=== PATIENT | male | born 1995 | race Hispanic/Latino ===

== ENCOUNTER 2019-10-28 01:04 | Emergency (ER) | payer SELFPAY ==
[2019-10-28] MEDS ORDERED: FAMOTIDINE 20MG TAB 20 MG TAB ONE (23:15)
[2019-10-28] MEDS ORDERED: ENOXAPARIN SODIUM 30 MG/0.3 ML SQ ONE (23:15)
== END 2019-10-28 01:47 | disposition left against medical advice (07) ==
LOC: EDH 01:04
DX: R10.9 Unspecified abdominal pain (principal); Z53.21 Procedure and treatment not carried out due to patient leaving prior to being seen by health care provider
CPT/HCPCS: J1650

== ENCOUNTER 2025-04-30 05:31 | Emergency (ER) | payer OTHER, SELFPAY ==
[~2025-04-30] VITALS: Ht 167.6 cm; Wt 84.4 kg
--- NOTE | 2025-04-30 06:24 | ERN ---
General Chief Complaint: Numbness Stated Complaint: DIZZINESS AND NUMBNESS Time Seen by MD: 06:15 Source: patient History of Present Illness Initial Comments Patient is a 29-year-old male coming in for numbness along his left mastoid process left trapezius muscle and also a feeling of chest tightness. Accompanying this feeling of numbness and chest tightness the patient is starts to become tachypneic and anxious and tachycardic. The patient can feel me palpating his left trapezius muscle. He can also feel me touching it with my pen. He had a recent symptoms like this approximately a week ago in [facility]; however, the symptoms were more pronounced with the numbness also including his forehead and his bilateral arms. The patient was admitted to a hospital in [facility] and a CT scan was performed followed by an MRI which showed no evidence of a stroke. The patient states they did not do a carotid Doppler or an echocardiogram at the [facility]. He was discharged from the hospital on blood thinners and anti hypercholesterolemia medication. The numbness does not quite explain the situation as patient could feel things touching his arms hands and head throughout his exam is while he was in [facility]. Allergies: Coded Allergies: No Known Drug Allergies (Unverified Allergy, Unknown, 10/28/19) Past Medical History Past Medical History: Stroke Past Surgical History: None Constitutional: (-) chills, (-) diaphoresis, (-) fever, (-) malaise, (-) weakness, (-) other documentation EENTM: (-) eye pain, (-) blurred vision, (-) tearing, (-) double vision, (-) ear pain, (-) ear discharge, (-) nose pain, (-) nose congestion, (-) throat pain, (-) Throat swelling, (-) mouth pain, (-) tooth pain, (-) mouth swelling, (-) other documentation Respiratory: (-) cough, (-) orthopnea, (-) short of breath, (-) stridor, (-) wheezing, (-) other documentation Cardiovascular: (+) other documentation (Chest tightness) Gastrointestinal/Abdominal: (-) nausea, (-) vomiting, (-) diarrhea, (-) abdominal pain, (-) abdominal distention, (-) constipation, (-) rectal bleeding, (-) dark stool/melena, (-) other documentation Musculoskeletal: (+) Neck pain Skin: (-) laceration, (-) contusion, (-) abrasion, (-) abscess, (-) rash, (-) change in color, (-) change in hair, (-) change in nails, (-) diaphoresis, (-) dryness, (-) other documentation Neuro: (+) numbness Physical Exam General Appearance: (+) mild distress Orientation: (+) alert, (+) oriented x 3 Head/Face Trauma: No Eye: bilateral eye normal inspection, bilateral eye PERRL, bilateral eye EOMI Ear, Nose, Throat: (+) hearing grossly normal, (+) normal ENT inspection Neck: (+) normal inspection, (+) supple Respiratory: (+) chest non-tender, (+) lungs clear, (+) well ventilated Heart: (+) regular, (+) no gallop Vascular: (+) no edema, (+) normal peripheral pulse Gastrointestinal: (+) soft, (+) non-tender, (+) bowel sound present Results Laboratory and Microbiology Lab and Micro Result Laboratory Tests Test 04/30/25 06:43 04/30/25 06:50 Urine Color LIGHT-YELLOW (YELLOW) Urine Appearance CLEAR (CLEAR) Urine pH 6.0 (5.0-8.0) Urine Specific [place] 1.019 (1.001-1.031) Urine Protein NEGATIVE mg/dL (NEGATIVE) Urine Glucose (UA) NEGATIVE mg/dL (NEGATIVE) Urine Ketones NEGATIVE mg/dL (NEGATIVE) Urine Occult Blood NEGATIVE (NEGATIVE) Urine Nitrate NEGATIVE (NEGATIVE) Urine Bilirubin NEGATIVE mg/dL (NEGATIVE) Urine Urobilinogen 0.2 mg/dL (0.2-1.0) Urine Leukocyte Esterase NEGATIVE Laila/uL White Blood Count 6.2 K/uL (4.8-10.8) Red Blood Count 5.25 MIL/uL (4.50-6.20) Hemoglobin 15.7 g/dL (14.0-18.0) Hematocrit 45.3 % (42-54) Mean Corpuscular Volume 86.3 fL (79-99) Mean Corpuscular Hemoglobin 29.9 pg (27.0-33.0) Mean Corpuscular Hemoglobin Concent 34.7 g/dL (32.0-36.0) Red Cell Distribution Width 12.8 % (11.0-15.5) Platelet Count 238 K/uL (130-400) Mean Platelet Volume 9.8 fL (7.5-10.5) Immature Granulocyte % (Auto) 0.2 % (0-1) Neutrophils (%) (Auto) 57.9 % (40.0-77.0) Lymphocytes (%) (Auto) 29.8 % (21.0-51.0) Monocytes (%) (Auto) 8.1 % (3.0-13.0) Eosinophils (%) (Auto) 3.4 % (0.0-8.0) Basophils (%) (Auto) 0.6 % (0.0-5.0) Neutrophils # (Auto) 3.6 K/uL (1.8-7.7) Lymphocytes # (Auto) 1.8 K/uL (1.0-4.8) Monocytes # (Auto) 0.5 K/uL (0.1-1.0) Eosinophils # (Auto) 0.21 K/uL (0.00-0.70) Basophils # (Auto) 0.04 K/uL (0.00-0.20) Absolute Immature Granulocyte (auto 0.01 K/uL (0-1) Nucleated Red Blood Cells 0.0 % (0.0-0.19) Sodium Level 142 mmol/L (136-145) Potassium Level 4.0 mmol/L (3.5-5.1) Chloride Level 105 mmol/L (101-111) Carbon Dioxide Level 28 mmol/L (21-32) Blood Urea Nitrogen 16 mg/dL (7-18) Creatinine 0.7 mg/dL (0.5-1.3) Glomerular Filtration Rate Calc 127 mL/min (>90) Random Glucose 98 mg/dL (70-105) Total Calcium 9.2 mg/dL (8.5-10.1) Troponin I High Sensitivity 6 ng/L (4-75) Labs Reviewed?: Yes EKG/XRAY/US/CT/MRI EKG Comment 2024 time 6:51 a.m. Ventricular rate 68 Sinus rhythm [place] [address] wave elevation or depression X-RAY Comment [place] [id number] [address] IMAGING REPORT Signed PATIENT: JABARI ALDANA MR#: [id number] : 1995 SEX: M AGE: 29 LOCATION: [facility] ORDER 5 STATUS: REG ER REPORT#: [id number] SERVICE 3 REASON: sob ORDERING PHYSICIAN: MONTY VIEYRA MD PROCEDURE: CXR1VW - CHEST 1VW EXAM: CR Chest, 1 View. CLINICAL HISTORY: sob COMPARISON: None provided. FINDINGS: LUNGS: There is no mass, infiltrate, or acute pulmonary abnormality. PLEURAL SPACES: No pleural effusion or pneumothorax. MEDIASTINUM: Cardiac size and mediastinal contours within normal limits. BONES: No aggressive appearing osseous lesion seen. IMPRESSION: No acute cardiopulmonary pathology is evident. /[employer] DICTATED BY: MAURO DAVALOS MD DATE: 04/30/25950 ELECTRONICALLY SIGNED BY: MAURO DAVALOS MD DATE: 04/30/25950 CT Scan Comment IMAGING REPORT Signed PATIENT: JABARI ALDANA MR#: [id number] : 1995 SEX: M AGE: 29 LOCATION: [facility] ORDER 7 STATUS: [facility] ER REPORT#: [id number] SERVICE 4 REASON: numbness in neck and arms ORDERING PHYSICIAN: ROXANNA ELIZONDO MD PROCEDURE: HEAD WO - CT HEAD/BRAIN W/O CONTRAST EXAM: CT Head Without IV contrast. CLINICAL HISTORY: numbness in neck and arms TECHNIQUE: Axial computed tomography images of the head/brain without intravenous contrast. COMPARISON: None provided. FINDINGS: BRAIN: No evidence of acute hemorrhage. No mass lesion. No CT evidence for acute territorial infarct. No midline shift or extra-axial collections. VENTRICLES: No hydrocephalus. ORBITS: The orbits are unremarkable. SINUSES AND MASTOIDS: The paranasal sinuses and mastoid air cells are clear. BONES: No fracture. SOFT TISSUES: Unremarkable. IMPRESSION: No acute intracranial abnormality. /[employer] DICTATED BY: MAURO DAVALOS MD DATE: 04/30/25751 ELECTRONICALLY SIGNED BY: MAURO DAVALOS MD DATE: 04/30/25751 [facility] MDM: Differential diagnosis: Patient is here for symptoms of numbness and chest tightness that seemed to then escalate to anxiety tachycardia and feelings of shortness of breath. The patient is is having very atypical stroke symptoms. And to be put on a blood thinner with a negative stroke workup in the patient as young as he is seems premature without evidence of plaque in his carotids or evidence of heart disease. For now I will bolused the patient with fluids and do lab tests to sort out other possible reasons for his feelings of numbness and lightheadedness. Rationale: Tests considered and ordered secondary to shared decision making include: Previous outside records reviewed: Old ER visits. Risk of complication and/or morbidity or mortality of patient management: None Medications-Per medication reconciliation Need for hospitalization: Patient does not meet criteria for hospitalization. Need for emergency major/minor surgery: No There are no social concerns with this patient. Prescription drug management Prescriptions will include symptomatic care Patient's prior external medical records from other ER visits were reviewed by me as indicated. Prior testing and results from previous visits were reviewed. Prior tests were taken into account with medical decision making and resource utilization, independent historian/historians were used to obtain complete medical history. I independently interpreted the test that were performed, results were reviewed by me and considered findings on radiology if ordered. Patient is a 29-year-old male coming in with multiple complaints. Per patient he has been having some shortness of breath isn't present at the moment but goes and comes. Long with the as he states that when he has a shortness of breath he feels very anxious in his numbness in his head and he was treated for a TIA at another ER. Throughout ER visit patient has been stable chest x-ray CT all are negative I did advised him appropriate follow up with PCP we will be treating face the discomfort he de scribed reflux. ED Course Orders Procedure Category Date Status Time 12 Lead Ekg Tracing- EKG 04/30/25 Complete Technical 06:25 Basic Metabolic Panel LAB 04/30/25 Complete 06:25 Cbc With Differential LAB 04/30/25 Complete 06:25 Urinalysis Profile LAB 04/30/25 Complete 06:25 Lactated Ringers PHA 04/30/25 Complete 1000ml (Lactated 06:25 Troponin I High LAB 04/30/25 Complete Sensitivity 06:25 Ct Head/Brain W/O CT 04/30/25 Resulted Contrast 06:25 Lidocaine Hcl 2% PHA 04/30/25 Complete Viscous (Lidocaine Hcl 08:00 Mag/Alum/Simeth 30ml PHA 04/30/25 Complete (Maalox Plus 30ml) 08:00 Chest 1vw RAD 04/30/25 Resulted 07:54 Current Medications Medications (Trade) Dose Ordered Sig/Stella Route PRN Reason Start Time Stop Time Status Last Admin Dose Admin Al Hydroxide/Mg Hydroxide (MAALox PLUS 30ML) 30 ml ONCE ONCE PO 04/30/25 08:00 04/30/25 08:01 DC 04/30/25 08:01 Lactated Ringer's (Lactated Ringers 1000ml) 1,000 ml BOLUS STAT IV 04/30/25 06:25 04/30/25 06:28 DC 04/30/25 06:56 Lidocaine HCl (Lidocaine HCl 2% Viscous) 10 ml ONCE ONCE PO 04/30/25 08:00 04/30/25 08:01 DC 04/30/25 08:01 Vital Signs Date Time Temp Pulse Resp B/P (MAP) Pulse Ox O2 Delivery O2 Flow Rate FiO2 04/30/25 07:03 58 14 113/65 98 Room Air* 0 21 04/30/25 05:56 98.1 75 14 113/55 98 Room Air* 0 21 04/30/25 05:34 98.1 73 19 133/70 100 Room Air 0 DX & DISP Disposition: Discharge Departure Impression: Primary Impression: GERD (gastroesophageal reflux disease) Additional Impression: Dehydration Condition: Stable Scripts Pantoprazole Sodium (Protonix) 40 Mg Ectab 1 TAB PO DAILY for 30 Days, #30 TAB 0 Refills Prov: MONTY VIEYRA MD 04/30/25 Additional Instructions: You have been reviewed in the emergency department at [facility] after presenting with chest pain. After considering your history, your risk factors, your EKG and your blood test troponins, have been found to be at very low risk less than (1 in 100) of having a major adverse cardiac event (like heart attack) in the near future. In the " low risk" group, the risks of doing further tests and treatment as the inpatient outweighs the benefits. In many patients in the low risk group for the test of any sort or unnecessary, however he should discuss this further with his general practitioner who will understand the medical and personal backgrounds better. Because we have never declared you" no risk" we would suggest. 1 returning for medical review if you have further episodes of chest pain/arm pain or other concerning symptoms like dizziness, collapse, palpitations or shortness of breath. 2. Following up with your local doctor who will consider the need for further testing and will also ensure that any modifiable risk factors you may have for heart disease are optimally managed. Patient will be discharged in stable condition at the moment discharge patient states , no chest pain Referrals: KERI SNEED MD (PCP) CHELITA DUNAWAY MD Time of Disposition: 09:17 ROXANNA ELIZONDO MD Apr 30, 2025 06:24 MONTY VIEYRA MD Apr 30, 2025 07:54
--- NOTE | 2025-04-30 06:37 | NUR ---
PT LEFT TO CT AT THIS TIME
--- NOTE | 2025-04-30 06:53 | HMCIMG ---
EXAM: CT Head Without IV contrast. CLINICAL HISTORY: numbness in neck and arms TECHNIQUE: Axial computed tomography images of the head/brain without intravenous contrast. COMPARISON: None provided. FINDINGS: BRAIN: No evidence of acute hemorrhage. No mass lesion. No CT evidence for acute territorial infarct. No midline shift or extra-axial collections. VENTRICLES: No hydrocephalus. ORBITS: The orbits are unremarkable. SINUSES AND MASTOIDS: The paranasal sinuses and mastoid air cells are clear. BONES: No fracture. SOFT TISSUES: Unremarkable. IMPRESSION: No acute intracranial abnormality. /[place]
--- NOTE | 2025-04-30 06:55 | EKG ---
[facility] Test Date: 2025-04-30 Test Time: 06:51:09 Pat Name: JABARI ALDANA Department: ED Room: Gender: M [employer] Director: [id number] : 1995 Requested By: ROXANNA ELIZONDO Order Number: [id number] Reading MD: You Box Measurements Intervals [place] Rate: 68 P: 19 CA: 156 QRS: 0 QRSD: 91 T: 21 QT: 371 QTc: 396 Interpretive Statements Sinus rhythm Indeterminate axis No previous ECG available for comparison Electronically Signed On 04-30-2025 10:34:06 CDT by You Box Please click the below link to view image of tracing.
[2025-04-30] MEDS: LACTATED RINGERS 1000ML IV STA (06:56)
[2025-04-30 06:58] LABS: IMMATURE GRANULOCYTE ABSOLUTE 0.01 K/uL (0-1); NUCLEATED RED BLOOD CELLS 0.0 % (0.0-0.19); PLATELET COUNT (AUTO) 238 K/uL (130-400); RED BLOOD CELL COUNT(AUTO) 5.25 MIL/uL (4.50-6.20); RED CELL DISTRIBUTION WIDTH 12.8 % (11.0-15.5); WHITE BLOOD COUNT (AUTO) 6.2 K/uL (4.8-10.8)
[2025-04-30 07:01] LABS: APPEARANCE,URINE CLEAR (CLEAR); GLUCOSE, URINE (UA) NEGATIVE (NEGATIVE); LEUKOCYTE ESTERASE ,URINE NEGATIVE Leu/uL (NEGATIVE); NITRATE,URINE NEGATIVE (NEGATIVE); OCCULT BLOOD,URINE NEGATIVE (NEGATIVE)
--- NOTE | 2025-04-30 07:04 | NUR ---
REPORT GIVEN TO SHAZIA GILLIAM AT THIS TIME
[2025-04-30 07:09] LABS: CREATININE 0.7 mg/dL (0.5-1.3); GLOMERULAR FILTR. RATE CALC 127.0 mL/min (>90); GLUCOSE,RANDOM 98.0 mg/dL (70-105); SODIUM SERUM 142.0 mmol/L (136-145); UREA NITROGEN, BLOOD 16.0 mg/dL (7-18)
[2025-04-30 07:11] LABS: ADD UA MICROSCOPIC NO
[2025-04-30] MEDS: MAG/ALUM/SIMETH 30 ML UDCUP PO ONE (08:01)
[2025-04-30] MEDS: LIDOCAINE HCL 2% VISCOUS 15 ML UDCUP PO ONE (08:01)
--- NOTE | 2025-04-30 08:52 | HMCIMG ---
EXAM: CR Chest, 1 View. CLINICAL HISTORY: sob COMPARISON: None provided. FINDINGS: LUNGS: There is no mass, infiltrate, or acute pulmonary abnormality. PLEURAL SPACES: No pleural effusion or pneumothorax. MEDIASTINUM: Cardiac size and mediastinal contours within normal limits. BONES: No aggressive appearing osseous lesion seen. IMPRESSION: No acute cardiopulmonary pathology is evident. /[place]
[2025-04-30] MEDS ORDERED: PANT40TA55 PO (09:18)
[2025-04-30 09:47] VITALS: BP 126/76; PULSE 82; RESP 18; TEMP 97.8; O2SAT 98
== END 2025-04-30 09:54 | disposition home or self-care (01) ==
LOC: EDH 05:31
DX: K21.9 Gastro-esophageal reflux disease without esophagitis (principal); E86.0 Dehydration; Z79.01 Long term (current) use of anticoagulants; Z86.73 Personal history of transient ischemic attack (TIA), and cerebral infarction without residual deficits
CPT/HCPCS: 99285; 96360; 70450; 71045; 84484; 80048; 85025; 81003; 36415; 93005; J7120

== ENCOUNTER 2025-05-03 00:03 | Emergency (ER) | payer OTHER ==
[~2025-05-03] VITALS: Ht 167.6 cm; Wt 83.5 kg
[~2025-05-03 00:03] MED LIST: PANT40TA55 PO
[2025-05-03 00:45] VITALS: TEMP 98.2
--- NOTE | 2025-05-03 01:02 | ERN ---
General Chief Complaint: Shortness of Breath Stated Complaint: C/O SOB X 2 DAYS Time Seen by MD: 00:06 Time Seen by Midlevel: 00:06 Source: patient, family History of Present Illness Initial Comments 29-year-old male who presents to the emergency department due to shortness of breath and chest pressure onset two days. Patient states he has been admitted twice due to stroke like symptoms and initiated on multiple medications. Patient was seen by PCP today and told there was an abnormality in the chest x- ray. States the chest pressure/pain is worsening. Denies any headache, abdominal pain, cough, congestion, fever, numbness or further associated symptoms. Allergies: Coded Allergies: No Known Drug Allergies (Unverified Allergy, Unknown, 10/28/19) Home Meds Active Scripts Hydroxyzine HCl (Hydroxyzine HCl) 25 Mg Tablet, 1 TAB PO TID for anxiety for 10 Days, #30 TAB 0 Refills Prov:KRYSTIAN ACUÑA MD 05/03/25 Pantoprazole Sodium (Protonix) 40 Mg Ectab, 1 TAB PO DAILY for 30 Days, #30 TAB 0 Refills Prov:MONTY VIEYRA MD 04/30/25 Reported Medications Atorvastatin Calcium (Atorvastatin Calcium) 40 Mg Tablet, 1 TAB PO DAILY for 30 Days, #30 TAB 0 Refills 05/03/25 Pantoprazole Sodium (Pantoprazole Sodium) 40 Mg Tablet.dr, 1 TAB PO DAILY for 30 Days, #30 TAB 0 Refills 05/03/25 Sertraline HCl (Sertraline HCl) 25 Mg Tablet, 1 TAB PO DAILY for 30 Days, #30 TAB 0 Refills 05/03/25 Loratadine (Loratadine) 10 Mg Tablet, 1 TAB PO DAILY for allergy symptoms for 30 Days, #30 TAB 0 Refills 05/03/25 Clopidogrel Bisulfate (Plavix) 75 Mg Tablet, 1 TAB PO DAILY for 30 Days, #30 TAB 0 Refills 05/03/25 Fluticasone Propionate (Fluticasone Propionate) 50 Mcg/Actuation [place].susp, 2 SPRAY NS DAILY, #16 GM 0 Refills 05/03/25 Past Medical History Past Medical History: No Pertinent History Past Surgical History: None ROS Dictation Constitutional: Negative for fever,chills, and weight loss Eyes: Negative for injury, pain,redness, and discharge ENT: Negative for injury,pain or swelling Cardiovascular: Positive for chest pain/pressure Negative for palpitations, and edema Respiratory: Positive for shortness of breath Negative for cough, and wheezing Abdomen/GI: Negative for abdominal pain, nausea, vomiting, diarrhea, and constipation Back: Negative for injury and pain : Negative for painful urination, bleeding or discharge MS/Extremity: Negative for injury and deformity Skin: Negative for rash, and discoloration Neuro: Negative for headache, weakness, numbness, tingling, and seizure Psych: Negative for suicide ideation, homicidal ideation, and hallucinations Physical Exam Physical Exam Dictation General: awake, alert, no acute distress Head/Face: Normocephalic, atraumatic Eyes: PERRL, EOMI, normal conjunctiva ENT: oral cavity clear, oral mucosa moist Neck: Supple, normal range of motion Cardiovascular: RRR, normal S1/S2 Respiratory: CTAB, no respiratory distress, no rales or wheezes Abdomen: Soft, non-tender, non-distended, normal bowel sounds, no guarding or rebound. Skin: Warm, dry, normal turgor, no rash MS/Extremity: Pulses equal, no cyanosis, neurovascular intact, FROM Neuro: COAx4, GCS 15, strength 5/5, CN 2-12 intact, normal cerebellar exam, normal gait, Psych: Normal behavior, mood, and affect normal Results Laboratory and Microbiology Lab and Micro Result Laboratory Tests Test 05/03/25 00:50 05/03/25 00:55 White Blood Count 9.0 K/uL (4.8-10.8) Red Blood Count 5.44 MIL/uL (4.50-6.20) Hemoglobin 16.4 g/dL (14.0-18.0) Hematocrit 46.1 % (42-54) Mean Corpuscular Volume 84.7 fL (79-99) Mean Corpuscular Hemoglobin 30.1 pg (27.0-33.0) Mean Corpuscular Hemoglobin Concent 35.6 g/dL (32.0-36.0) Red Cell Distribution Width 12.4 % (11.0-15.5) Platelet Count 261 K/uL (130-400) Mean Platelet Volume 10.6 fL (7.5-10.5) H Immature Granulocyte % (Auto) 0.2 % (0-1) Neutrophils (%) (Auto) 66.9 % (40.0-77.0) Lymphocytes (%) (Auto) 21.5 % (21.0-51.0) Monocytes (%) (Auto) 8.8 % (3.0-13.0) Eosinophils (%) (Auto) 2.0 % (0.0-8.0) Basophils (%) (Auto) 0.6 % (0.0-5.0) Neutrophils # (Auto) 6.0 K/uL (1.8-7.7) Lymphocytes # (Auto) 1.9 K/uL (1.0-4.8) Monocytes # (Auto) 0.8 K/uL (0.1-1.0) Eosinophils # (Auto) 0.18 K/uL (0.00-0.70) Basophils # (Auto) 0.05 K/uL (0.00-0.20) Absolute Immature Granulocyte (auto 0.02 K/uL (0-1) Nucleated Red Blood Cells 0.0 % (0.0-0.19) Sodium Level 142 mmol/L (136-145) Potassium Level 4.3 mmol/L (3.5-5.1) Chloride Level 103 mmol/L (101-111) Carbon Dioxide Level 29 mmol/L (21-32) Blood Urea Nitrogen 17 mg/dL (7-18) Creatinine 0.8 mg/dL (0.5-1.3) Glomerular Filtration Rate Calc 122 mL/min (>90) Random Glucose 95 mg/dL (70-105) Total Calcium 9.3 mg/dL (8.5-10.1) Troponin I High Sensitivity < 4 ng/L (4-75) L Urine Color COLORLESS (YELLOW) Urine Appearance CLEAR (CLEAR) Urine pH 6.0 (5.0-8.0) Urine Specific [place] 1.011 (1.001-1.031) Urine Protein NEGATIVE mg/dL (NEGATIVE) Urine Glucose (UA) NEGATIVE mg/dL (NEGATIVE) Urine Ketones NEGATIVE mg/dL (NEGATIVE) Urine Occult Blood NEGATIVE (NEGATIVE) Urine Nitrate NEGATIVE (NEGATIVE) Urine Bilirubin NEGATIVE mg/dL (NEGATIVE) Urine Urobilinogen 0.2 mg/dL (0.2-1.0) Urine Leukocyte Esterase NEGATIVE [place]/uL Urine RBC 0-1 /HPF (0-1) Urine WBC 0-1 /HPF (0-1) Urine Bacteria None /HPF (None Seen) Urine Opiates Screen NEGATIVE (NEGATIVE) Urine Barbiturates Screen NEGATIVE (NEGATIVE) Urine Phencyclidine Screen NEGATIVE (NEGATIVE) Urine Amphetamines Screen NEGATIVE (NEGATIVE) Urine Benzodiazepines Screen NEGATIVE (NEGATIVE) Urine Cocaine Screen NEGATIVE (NEGATIVE) Urine Marijuana (THC) Screen NEGATIVE (NEGATIVE) Labs Reviewed?: Yes EKG/XRAY/US/CT/MRI EKG Comment Date: 05/03/2025 Time: 0126 Rate: 63 EKG interpretation: Sinus rhythm, ST elevation probable normal early repolari zation pattern, no STEMI Reviewed by ED Attending MDM MDM: Differential diagnosis: Atypical chest pain, esophagitis, gastritis, cholecystitis Rationale: Tests considered and ordered secondary to shared decision making include: Previous outside records reviewed: Old ER visits. Risk of complication and/or morbidity or mortality of patient management: None Medications-Per medication reconciliation Need for hospitalization: Patient does not meet criteria for hospitalization. Need for emergency major/minor surgery: No There are no social concerns with this patient. Prescription drug management Prescriptions will include symptomatic care Patient's prior external medical records from other ER visits were reviewed by me as indicated. Prior testing and results from previous visits were reviewed. Prior tests were taken into account with medical decision making and resource utilization, independent historian/historians were used to obtain complete medical history. I independently interpreted the test that were performed, results were reviewed by me and considered findings on radiology if ordered. Medical management and examination interpretation discussions were had by me with other qualified healthcare professionals as indicated for the patient's care. ED Course Orders Procedure Category Date Status Time Cbc With Differential LAB 05/03/25 Complete 00:12 Basic Metabolic Panel LAB 05/03/25 Complete 00:12 Urinalysis LAB 05/03/25 Complete W/Microscopic 00:12 Drug Screen Urine LAB 05/03/25 Complete 00:12 Troponin I High LAB 05/03/25 Complete Sensitivity 00:12 Chest 1vw RAD 05/03/25 Resulted 00:12 Ketorolac PHA 05/03/25 Complete Tromethamine 15mg/Ml 00:30 Nitroglycerin 0.4mg PHA 05/03/25 Complete Sl Tab (Nitrostat) 01:30 12 Lead Ekg Tracing- EKG 05/03/25 Resulted Technical 01:24 0.9%Nacl 1000ml (Ns PHA 05/03/25 Complete 1000ml) 02:30 Lorazepam 0.5 Mg PHA 05/03/25 Complete (Ativan) 02:30 Lorazepam 0.5 Mg PHA 05/03/25 Complete (Ativan) 02:30 Current Medications Medications (Trade) Dose Ordered Sig/Stella Route PRN Reason Start Time Stop Time Status Last Admin Dose Admin Ketorolac Tromethamine (toRADol) 15 mg ONCE ONCE IM 05/03/25 00:30 05/03/25 00:31 DC 05/03/25 00:54 Lorazepam (AtiVAN) 0.5 mg ONCE ONCE PO 05/03/25 02:30 05/03/25 02:31 DC 05/03/25 02:31 Lorazepam (AtiVAN) 0.5 mg STK-MED ONCE .ROUTE 05/03/25 02:30 05/03/25 02:30 DC Nitroglycerin (Nitrostat) 0.4 mg AD ONCE SL 05/03/25 01:30 05/03/25 01:31 DC 05/03/25 02:16 Sodium Chloride 1,000 ml @ 0 mls/hr ONCE ONCE IV 05/03/25 02:30 05/03/25 02:31 DC 05/03/25 02:31 Vital Signs Date Time Temp Pulse Resp B/P (MAP) Pulse Ox O2 Delivery O2 Flow Rate FiO2 05/03/25 04:10 74 18 118/81 97 Room Air* 0 21 05/03/25 00:45 98.2 72 16 124/82 97 Room Air* 0 21 05/03/25 00:05 97.9 72 24 123/77 97 Room Air Patient was signed out to me by mid-level provider This is a 29-year-old male who presented with multiple somatic complaints including lower chest pain he was recently admitted twice with stroke-like symptoms and subsequently discharged. He went to see his PCP today who apparently told him that he had an abnormality on chest x-ray and hence he showed up in the ER for further evaluation Extensive workup was re done CBC BNP 7 are within normal limits urinalysis is unremarkable a chest x-ray was done and I did not see any obvious abnormality on the chest x-ray that was done today I updated the patient and reassured him and answered all the questions. He should follow up with his primary care again DX & DISP Disposition: Discharge Departure Impression: Primary Impression: Dehydration Additional Impression: GERD (gastroesophageal reflux disease) Condition: Stable Scripts Hydroxyzine HCl (Hydroxyzine HCl) 25 Mg Tablet 1 TAB PO TID for anxiety for 10 Days, #30 TAB 0 Refills Prov: KRYSTIAN ACUÑA MD 05/03/25 Additional Instructions: Patient and the caregiver have been informed of all the diagnostic tests and the imaging conducted during the today's visit to the emergency room and has verbalized understanding of the results I have personally reviewed and interpreted all diagnostic exams performed here in the ER today as well as the vital signs documented by the nursing staff. The patient is now being discharged to home and should follow up with the primary care physician or the specialist as directed by the ER staff. Follow-up with primary care provider in 1 to 2 days. Take medications as directed here in the emergency room. Okay to continue home medications unless otherwise discussed during your visit in the emergency room today. Return to your nearest emergency room if symptoms worsen or if there is no improvement. Call 911 if you need immediate assistance. Take Tylenol or Motrin [id number] as needed and if no contraindications are present. Increase oral hydration. A wound culture or urine culture was ordered here in the emergency room department please follow-up with primary care provider and advise them to get repeat ports from our facility. If you had any Amos wrap/splints that were applied here, please do not remove them until you see your primary care or specialty. Referrals: GIRMA SALEH DO (PCP) SRI PERSAUD May 03, 2025 01:02 KRYSTIAN ACUÑA MD May 03, 2025 04:17
[2025-05-03 01:06] LABS: IMMATURE GRANULOCYTE ABSOLUTE 0.02 K/uL (0-1); NUCLEATED RED BLOOD CELLS 0.0 % (0.0-0.19); PLATELET COUNT (AUTO) 261 K/uL (130-400); RED BLOOD CELL COUNT(AUTO) 5.44 MIL/uL (4.50-6.20); RED CELL DISTRIBUTION WIDTH 12.4 % (11.0-15.5); WHITE BLOOD COUNT (AUTO) 9.0 K/uL (4.8-10.8)
[2025-05-03 01:09] LABS: APPEARANCE,URINE CLEAR (CLEAR); GLUCOSE, URINE (UA) NEGATIVE (NEGATIVE); LEUKOCYTE ESTERASE ,URINE NEGATIVE Leu/uL (NEGATIVE); NITRATE,URINE NEGATIVE (NEGATIVE); OCCULT BLOOD,URINE NEGATIVE (NEGATIVE)
[2025-05-03 01:10] LABS: CREATININE 0.8 mg/dL (0.5-1.3); GLOMERULAR FILTR. RATE CALC 122.0 mL/min (>90); GLUCOSE,RANDOM 95.0 mg/dL (70-105); SODIUM SERUM 142.0 mmol/L (136-145); UREA NITROGEN, BLOOD 17.0 mg/dL (7-18)
[2025-05-03 01:15] LABS: AMPHET/METH SCREEN,URINE NEGATIVE (NEGATIVE); BARBITURATE SCREEN, URINE NEGATIVE (NEGATIVE); CANNABINOID SCREEN,URINE NEGATIVE (NEGATIVE); COCAINE SCREEN,URINE NEGATIVE (NEGATIVE)
[2025-05-03] MEDS: NITROGLYCERIN 0.4 MG SL TAB SL ONE (02:16)
--- NOTE | 2025-05-03 02:25 | HMCIMG ---
EXAM: CR Chest, 1 view CLINICAL HISTORY: Pain and pressure. COMPARISON: Chest radiograph dated 04/30/2025. FINDINGS: The lungs show no infiltrates or other acute findings. No pleural effusion or pneumothorax. The cardiomediastinal silhouette is within normal limits. No acute osseous abnormality. IMPRESSION: No acute cardiopulmonary process is evident. No interval changes. /[place]
[2025-05-03] MEDS: 0.9%NACL 1000ML 1,000 ML IV ONE (02:31)
[2025-05-03 04:10] VITALS: BP 118/81; PULSE 74; RESP 18; O2SAT 97
[2025-05-03] MEDS ORDERED: HYDR-3421 PO (04:17)
[2025-05-03] MEDS ORDERED: FLUT15.845 NS (04:36)
[2025-05-03] MEDS ORDERED: CLOP-31 PO (04:38)
[2025-05-03] MEDS ORDERED: ATOR40TA71 PO (04:41)
[2025-05-03] MEDS ORDERED: SERT-438 PO (04:41)
[2025-05-03] MEDS ORDERED: LORA10TA7 PO (04:41)
[2025-05-03] MEDS ORDERED: PANT40TA54 PO (04:41)
--- NOTE | 2025-05-03 07:03 | EKG ---
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
== END 2025-05-03 04:59 | disposition home or self-care (01) ==
LOC: EDH 00:03
DX: E86.0 Dehydration (principal); K21.9 Gastro-esophageal reflux disease without esophagitis; F41.9 Anxiety disorder, unspecified; Z79.02 Long term (current) use of antithrombotics/antiplatelets; Z79.899 Other long term (current) drug therapy
CPT/HCPCS: 99285; 96360; 71045; 96361; 84484; 80048; 80305; 85025; 36415; 93005; 81001; 96372; J1885; J7030

== ENCOUNTER 2025-05-09 15:46 | Emergency (ER) | payer OTHER ==
[~2025-05-09] VITALS: Ht 167.6 cm; Wt 79.4 kg
[~2025-05-09 15:46] MED LIST changes: +ATOR40TA71 PO; +CLOP-31 PO; +FLUT15.845 NS; +HYDR-3421 PO; +LORA10TA7 PO; +PANT40TA54 PO; +SERT-438 PO
[2025-05-09 16:44] LABS: IMMATURE GRANULOCYTE ABSOLUTE 0.05 K/uL (0-1); NUCLEATED RED BLOOD CELLS 0.0 % (0.0-0.19); PLATELET COUNT (AUTO) 302 K/uL (130-400); RED BLOOD CELL COUNT(AUTO) 5.69 MIL/uL (4.50-6.20); RED CELL DISTRIBUTION WIDTH 12.4 % (11.0-15.5); WHITE BLOOD COUNT (AUTO) 9.0 K/uL (4.8-10.8)
[2025-05-09 16:51] LABS: CREATININE 1.0 mg/dL (0.5-1.3); GLOMERULAR FILTR. RATE CALC 104.0 mL/min (>90); GLUCOSE,RANDOM 109.0 mg/dL (70-105); SODIUM SERUM 142.0 mmol/L (136-145); UREA NITROGEN, BLOOD 16.0 mg/dL (7-18)
--- NOTE | 2025-05-09 16:56 | HMCIMG ---
EXAM: CR Chest, 1 View. CLINICAL HISTORY: chest pain COMPARISON: Radiograph dated May 03, 2025 FINDINGS: LUNGS: The lungs show no infiltrate or other acute finding. PLEURAL SPACES: No evidence of pleural effusion or pneumothorax. MEDIASTINUM: The cardiomediastinal silhouette is within normal limits. BONES: No acute osseous abnormality. IMPRESSION: No acute cardiopulmonary pathology is evident. /[place]
[2025-05-09] MEDS: FAMOTIDINE 20MG VIAL IV ONE (17:25)
[2025-05-09] MEDS: MAG/ALUM/SIMETH 30 ML UDCUP PO ONE (17:25)
[2025-05-09] MEDS: LIDOCAINE HCL 2% VISCOUS 15 ML UDCUP PO ONE (17:25)
[2025-05-09] MEDS: DICYCLOMINE HCL 10 MG/5 ML ML PO ONE (17:25)
[2025-05-09 18:32] LABS: ASPARTATE AMINOTRANSFERASE 22.0 U/L (10-37); TOTAL PROTEIN, SERUM 8.9 g/dL (6.0-8.3)
--- NOTE | 2025-05-09 19:23 | ERN ---
ED Note History of Present Illness Stated Complaint: CHEST TIGHTNESS, TROUBLE BREATHING Chief Complaint: Shortness of Breath Time Seen by MD: 16:14 Time Seen by Midlevel: 16:18 Dictation: 29-year-old male with a history of TIA coming in complaining of chest pain/burning sensation onset just prior to arrival. Patient states they were driving home on the way from seeing the neurologist when he began to feel this discomfort. Denies having any nausea vomiting diarrhea. Patient is taking Plavix as of three weeks ago due to his TIA. Allergies: Coded Allergies: No Known Drug Allergies (Unverified Allergy, Unknown, 10/28/19) Home Meds Active Scripts Hydroxyzine HCl (Hydroxyzine HCl) 25 Mg Tablet, 1 TAB PO TID for anxiety for 10 Days, #30 TAB 0 Refills Prov:KRYSTIAN ACUÑA MD 05/03/25 Pantoprazole Sodium (Protonix) 40 Mg Ectab, 1 TAB PO DAILY for 30 Days, #30 TAB 0 Refills Prov:MONTY VIEYRA MD 04/30/25 Reported Medications Atorvastatin Calcium (Atorvastatin Calcium) 40 Mg Tablet, 1 TAB PO DAILY for 30 Days, #30 TAB 0 Refills 05/03/25 Pantoprazole Sodium (Pantoprazole Sodium) 40 Mg Tablet.dr, 1 TAB PO DAILY for 30 Days, #30 TAB 0 Refills 05/03/25 Sertraline HCl (Sertraline HCl) 25 Mg Tablet, 1 TAB PO DAILY for 30 Days, #30 TAB 0 Refills 05/03/25 Loratadine (Loratadine) 10 Mg Tablet, 1 TAB PO DAILY for allergy symptoms for 30 Days, #30 TAB 0 Refills 05/03/25 Clopidogrel Bisulfate (Plavix) 75 Mg Tablet, 1 TAB PO DAILY for 30 Days, #30 TAB 0 Refills 05/03/25 Fluticasone Propionate (Fluticasone Propionate) 50 Mcg/Actuation [place].susp, 2 SPRAY NS DAILY, #16 GM 0 Refills 05/03/25 Past Medical History Past Medical History: TIA Surgical History: None Review of System Dictation Constitutional: Negative for fever,chills, and weight loss Eyes: Negative for injury, pain,redness, and discharge ENT: Negative for injury,pain or swelling Cardiovascular: Positive for chest pain Respiratory: Negative for shortness of breath, cough, and wheezing, Abdomen/GI: Negative for abdominal pain, nausea, vomiting, diarrhea, and constipation Back: Negative for injury and pain : Negative for injury, bleeding and discharge MS/Extremity: Negative for injury and deformity Skin: Negative for rash, and discoloration Neuro: Negative for headache, weakness, numbness, tingling, and seizure Psych: Negative for suicide ideation, homicidal ideation, and hallucinations Review of Systems: was completed Initial Vital Sign VS Vital Signs Date Time Temp Pulse Resp B/P (MAP) Pulse Ox O2 Delivery O2 Flow Rate FiO2 05/09/25 16:18 98.4 79 18 123/76 99 Physical Exam Dictation General: awake, alert, NAD Head/Face: Normocephalic, atraumatic Eyes: PERRL, EOMI, vision at baseline ENT: oral cavity clear, TMs clear, no signs of infection Neck: Trachea midline, supple, no nuchal rigidity Cardiovascular: RRR, normal S1/S2, No MRGs, no JVD Respiratory: CTAB, no respiratory distress, No rales or wheezes Abdomen: Soft, non-tender, non-distended, normal bowel sounds, no guarding or rebound. Skin: Warm, dry, normal turgor, no rash MS/Extremity: Pulses equal, no cyanosis, neurovascular intact, FROM Neuro: COAx4, GCS 15, strength 5/5, CN 2-12 intact, normal cerebellar exam, normal gait, Psych: Normal behavior, mood, and affect normal Results (Laboratory/Radiology) Laboratory/Radiology Laboratory Tests Test 05/09/25 16:35 White Blood Count 9.0 K/uL (4.8-10.8) Red Blood Count 5.69 MIL/uL (4.50-6.20) Hemoglobin 17.2 g/dL (14.0-18.0) Hematocrit 48.6 % (42-54) Mean Corpuscular Volume 85.4 fL (79-99) Mean Corpuscular Hemoglobin 30.2 pg (27.0-33.0) Mean Corpuscular Hemoglobin Concent 35.4 g/dL (32.0-36.0) Red Cell Distribution Width 12.4 % (11.0-15.5) Platelet Count 302 K/uL (130-400) Mean Platelet Volume 10.1 fL (7.5-10.5) Immature Granulocyte % (Auto) 0.6 % (0-1) Neutrophils (%) (Auto) 66.9 % (40.0-77.0) Lymphocytes (%) (Auto) 21.0 % (21.0-51.0) Monocytes (%) (Auto) 9.0 % (3.0-13.0) Eosinophils (%) (Auto) 1.7 % (0.0-8.0) Basophils (%) (Auto) 0.8 % (0.0-5.0) Neutrophils # (Auto) 6.0 K/uL (1.8-7.7) Lymphocytes # (Auto) 1.9 K/uL (1.0-4.8) Monocytes # (Auto) 0.8 K/uL (0.1-1.0) Eosinophils # (Auto) 0.15 K/uL (0.00-0.70) Basophils # (Auto) 0.07 K/uL (0.00-0.20) Absolute Immature Granulocyte (auto 0.05 K/uL (0-1) Nucleated Red Blood Cells 0.0 % (0.0-0.19) D-Dimer Quantitative (PE/DVT) 115 ng/mL (0-500) Sodium Level 142 mmol/L (136-145) Potassium Level 4.4 mmol/L (3.5-5.1) Chloride Level 103 mmol/L (101-111) Carbon Dioxide Level 29 mmol/L (21-32) Blood Urea Nitrogen 16 mg/dL (7-18) Creatinine 1.0 mg/dL (0.5-1.3) Glomerular Filtration Rate Calc 104 mL/min (>90) Random Glucose 109 mg/dL (70-105) H Total Calcium 9.4 mg/dL (8.5-10.1) Total Bilirubin 0.4 mg/dL (0.2-1.0) Direct Bilirubin 0.1 mg/dL (0.0-0.3) Aspartate Amino Transf (AST/SGOT) 22 U/L (10-37) Alanine Aminotransferase (ALT/SGPT) 69 U/L (12-78) Alkaline Phosphatase 94 U/L (50-136) Troponin I High Sensitivity < 4 ng/L (4-75) L B-Type Natriuretic Peptide 7 pg/mL (0-100) Total Protein 8.9 g/dL (6.0-8.3) H Albumin 4.5 g/dL (3.5-5.0) Lipase 89 U/L (16-77) H Labs Reviewed?: Yes ED Course ED Course Orders Procedure Category Date Status Time Cbc With Differential LAB 05/09/25 Complete 16:27 Basic Metabolic Panel LAB 05/09/25 Complete 16:27 Troponin I High LAB 05/09/25 Complete Sensitivity 16:27 12 Lead Ekg Tracing- EKG 05/09/25 Logged Technical 16:27 Chest 1vw RAD 05/09/25 Resulted 16:27 Famotidine 20mg Vial PHA 05/09/25 Complete (Pepcid 20mg Vial) 17:30 Lidocaine Hcl 2% PHA 05/09/25 Complete Viscous (Lidocaine Hcl 17:30 Mag/Alum/Simeth 30ml PHA 05/09/25 Complete (Maalox Plus 30ml) 17:30 Dicyclomine Hcl PHA 05/09/25 Complete (Bentyl 10mg/5ml 17:30 D-Dimer LAB 05/09/25 Complete 18:01 B-Type Natriuretic LAB 05/09/25 Complete Peptide 18:01 Lipase LAB 05/09/25 Complete 18:25 Hepatic Function Panel LAB 05/09/25 Complete 18:25 Current Medications Medications (Trade) Dose Ordered Sig/Tsella Route PRN Reason Start Time Stop Time Status Last Admin Dose Admin Al Hydroxide/Mg Hydroxide (MAALox PLUS 30ML) 30 ml ONCE ONCE PO 05/09/25 17:30 05/09/25 17:31 DC 05/09/25 17:25 Dicyclomine HCl (Bentyl 10mg/5ml Syrup) 10 mg ONCE ONCE PO 05/09/25 17:30 05/09/25 17:31 DC 05/09/25 17:25 Famotidine (Pepcid 20mg Vial) 20 mg ONCE ONCE IV 05/09/25 17:30 05/09/25 17:31 DC Lidocaine HCl (Lidocaine HCl 2% Viscous) 10 ml ONCE ONCE PO 05/09/25 17:30 05/09/25 17:31 DC 05/09/25 17:25 Vital Signs Date Time Temp Pulse Resp B/P (MAP) Pulse Ox O2 Delivery O2 Flow Rate FiO2 05/09/25 16:18 98.4 79 18 123/76 99 Medical Decision Making MDM MDM: A blood work is unremarkable. D-dimer is negative. Chest x-ray shows no acute finding. After GI cocktail patient states he did feel little better. Patient states he has not appointment with the underwriter mortgage loan tomorrow in the morning. We will discharge patient to follow up tomorrow with the his underwriter mortgage loan and return to the hospital as needed. Patient verbalized understanding, answered all questions. Differential diagnosis: PE, mi, anxiety, GERD Rationale: Tests considered and ordered secondary to shared decision making include: Previous outside records reviewed: Old ER visits. Risk of complication and/or morbidity or mortality of patient management: None Medications-Per medication reconciliation Need for hospitalization: Patient does not meet criteria for hospitalization. Need for emergency major/minor surgery: No There are no social concerns with this patient. Prescription drug management Prescriptions will include symptomatic care Patient's prior external medical records from other ER visits were reviewed by me as indicated. Prior testing and results from previous visits were reviewed. Prior tests were taken into account with medical decision making and resource utilization, independent historian/historians were used to obtain complete medical history. I independently interpreted the test that were performed, results were reviewed by me and considered findings on radiology if ordered. Medical management and examination interpretation discussions were had by me with other qualified healthcare professionals as indicated for the patient's care. DX & DISP Disposition: Discharge Departure Impression: Primary Impression: GERD (gastroesophageal reflux disease) Condition: Stable Referrals: GIRMA SALEH DO (PCP) Time of Disposition: 19:22 I have reviewed the case, and I agree with, Diagnosis and Plan SUMAYA PAYNE NP May 09, 2025 19:23
[2025-05-09 19:37] VITALS: BP 122/70; PULSE 79; RESP 18; TEMP 98.4; O2SAT 99
--- NOTE | 2025-05-10 07:32 | EKG ---
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
== END 2025-05-09 19:38 | disposition home or self-care (01) ==
LOC: EDH 15:46
DX: K21.9 Gastro-esophageal reflux disease without esophagitis (principal); Z79.02 Long term (current) use of antithrombotics/antiplatelets; Z79.899 Other long term (current) drug therapy; Z86.73 Personal history of transient ischemic attack (TIA), and cerebral infarction without residual deficits
CPT/HCPCS: 36415; 71045; 80048; 80076; 83690; 83880; 84484; 85025; 85378; 93005; 99284; 99285